=== PATIENT | female | born 2000 | race African-American/Black ===

== ENCOUNTER 2023-07-30 16:35 | Emergency (ER) | payer MEDICAID, OTHER ==
[~2023-07-30] VITALS: Ht 162.6 cm; Wt 102.0 kg
[~2023-07-30 16:35] MED LIST: FERR325T6 PO; PNV1TABL76 MT; PNV1TABL76 PO
[2023-07-30 16:42] VITALS: O2SAT 99
[2023-07-30] MEDS ORDERED: DICL50TA9 MT (18:04)
[2023-07-30] MEDS ORDERED: TOPUD PO (18:04)
[2023-07-30] MEDS ORDERED: AMOX-431 MT (18:04)
[2023-07-30] MEDS ORDERED: OFLO5DRO4 LEFT EAR (18:04)
[2023-07-30] MEDS ORDERED: KETOROLAC 60MG/2ML VIAL IM ONE (19:00)
[2023-07-30 19:02] VITALS: BP 118/86; PULSE 98; RESP 18; TEMP 97.9
== END 2023-07-30 19:03 | disposition home or self-care (01) ==
LOC: ER 16:35
DX: H66.92 Otitis media, unspecified, left ear (principal)
CPT/HCPCS: 99283; 81025; 96372; J1885

== ENCOUNTER 2025-01-31 11:23 | Emergency (ER) | payer OTHER, MEDICAID ==
[~2025-01-31] VITALS: Ht 162.6 cm; Wt 104.0 kg
[~2025-01-31 11:23] MED LIST changes: +AMOX-431 MT; +DICL50TA9 MT; +OFLO5DRO4 LEFT EAR; +TOPUD PO
[2025-01-31 11:30] VITALS: O2SAT 99
[2025-01-31 11:58] LABS: CLARITY URINE CLOUDY (CLEAR); COLOR URINE YELLOW (YELLOW); GLUCOSE URINE NEGATIVE (NEGATIVE); KETONES URINE TRACE (NEGATIVE); LEUKOCYTE ESTERASE URINE NEGATIVE (NEGATIVE); NITRITE URINE POSITIVE (NEGATIVE); OCCULT BLOOD URINE NEGATIVE (NEGATIVE); PH URINE 5.5 (4.5-8.0); PROTEIN URINE NEGATIVE (NEGATIVE); SPECIFIC GRAVITY URINE 1.024 (1.005-1.030); UROBILINOGEN URINE 0.2 E.U./dL (0.2-1.0)
[2025-01-31 12:00] LABS: BASOPHILS % 0.6 % (0.0-2.0); EOSINOPHILS % 0.6 % (0.0-5.0); HEMATOCRIT. 34.4 % (36.0-48.0); HEMOGLOBIN. 11.1 g/dL (12.0-16.0); LYMPHOCYTES % 40.2 % (20.0-50.0); MEAN PLATELET VOLUME 7.2 fl (7.4-10.4); MONOCYTES % 5.7 % (2.0-8.0); NEUTROPHILS % 52.9 % (40.0-76.0); PLATELET 352 x1000/uL (130-400); RED BLOOD CELL COUNT 4.32 mill/uL (4.2-5.4); RED CELL DISTRIBUTION WIDTH 16.2 % (11.6-14.6)
[2025-01-31 12:22] LABS: CREATININE 0.9 mg/dL (0.6-1.0); UREA NITROGEN BLOOD 12 mg/dL (9-23)
[2025-01-31 12:24] LABS: HCG SCREEN NEGATIVE
[2025-01-31 12:28] LABS: MUCUS URINE 1+ /lpf (< = 2+); SQUAMOUS EPITHELIAL CELL URINE 3+ /lpf (RARE/1+)
[2025-01-31 12:31] LABS: BACTERIA URINE 3+; RBC URINE 0-2 /hpf (0-2)
[2025-01-31] MEDS ORDERED: CEFP200T13 MT (12:54)
[2025-01-31] MEDS: CEFTRIAXONE SODIUM 1G VIAL IM ONE (13:15)
[2025-01-31] MEDS: LIDOCAINE HCL 1% 20ML VIAL INFIL ONE (13:15)
[2025-01-31 13:26] VITALS: BP 128/78; PULSE 84; RESP 18; TEMP 36.7; O2SAT 99
== END 2025-01-31 13:40 | disposition home or self-care (01) ==
LOC: ER 11:23
DX: N39.0 Urinary tract infection, site not specified (principal); Z79.899 Other long term (current) drug therapy
CPT/HCPCS: 80048; 81003; 84703; 85025; 87086; 87186; 87077; 36415; 96372; 99283; J0696; J2003; Z7610